=== PATIENT | male | born 1970 | race Caucasian/White ===

== ENCOUNTER 2018-10-29 00:36 | Emergency (ER) | payer SELFPAY ==
[~2018-10-29] VITALS: Ht 182.9 cm; Wt 93.3 kg
[~2018-10-29 00:36] MED LIST: AMOX1TAB64 PO; ASPI81TA45 PO; ATOR80TA PO; CARV3.1212 PO; LISI5TAB7 PO; LOVA10TA PO; NITR0.4T SL; PANT40TA3 PO; TICA90TA PO
[2018-10-29] MEDS ORDERED: DEXAMETHASONE 4 MG/ML, 1ML ONE (01:13)
[2018-10-29] MEDS ORDERED: SODIUM CHLORIDE FLUSH 10ML SYR IVF ONE (01:30)
[2018-10-29] MEDS ORDERED: DEXAMETHASONE 4 MG/ML, 1ML IVPush ONE (01:30)
[2018-10-29 01:43] LABS: BASOPHILS # (AUTO) 0.01 x10^3/uL (0-0.1); BASOPHILS % (AUTO) 0 % (0-1); EOSINOPHILS # (AUTO) 0.31 x10^3/uL (0-0.4); EOSINOPHILS % (AUTO) 2 % (1-7); LYMPHOCYTES # (AUTO) 2.26 x10^3/uL (1-3.4); LYMPHOCYTES % (AUTO) 17 % (22-44); MD NO; MEAN CORPUSCULAR HEMOGLOBIN 32.1 pg (27.5-34.5); MEAN CORPUSCULAR HGB CONC 34.4 g/dL (33.2-36.2); MEAN CORPUSCULAR VOLUME 93.4 fL (81-97); MEAN PLATELET VOLUME 7.6 fL (7.4-10.4); MONOCYTES # (AUTO) 1.05 x10^3/uL (0.2-0.8); MONOCYTES % (AUTO) 8 % (2-9); NEUTROPHILS # (AUTO) 9.41 x10^3/uL (1.8-6.8); NEUTROPHILS % (AUTO) 72 % (42-75); PLATELET COUNT 219 x10^3/uL (130-400); RED BLOOD COUNT 5.27 x10^6/uL (4.38-5.82); RED CELL DISTRIBUTION WIDTH 12.9 % (9.4-14.8)
--- NOTE | 2018-10-29 01:51 | NUR ---
IV STARTED ON PT. PT PLACED ON VITALS MONITORS, PT FAMILY AT BEDSIDE. PT AWAITNG CT.
[2018-10-29 01:55] LABS: ALBUMIN 4.1 g/dL (3.4-5.0); ANION GAP 10 mmol/L (5-15); CALCIUM 8.6 mg/dL (8.5-10.1); CHLORIDE 107 mmol/L (98-107); CREATININE 1.13 mg/dL (0.7-1.3)
[2018-10-29] MEDS ORDERED: OMNIPAQUE 350 MG/ML, 100ML BOTTLE ONE (02:14)
[2018-10-29] MEDS ORDERED: ONDANSETRON 2MG/ML, 2ML IVPush ONE (03:30)
[2018-10-29] MEDS ORDERED: LIDOCAINE-MPF 1%, 5ML INFIL ONE (03:30)
[2018-10-29] MEDS ORDERED: ONDANSETRON 2MG/ML, 2ML ONE (03:37)
[2018-10-29] MEDS ORDERED: LIDOCAINE-MPF 1%, 5ML ONE ×2 (03:37→04:09)
[2018-10-29] MEDS ORDERED: MORPHINE SULFATE 4 MG/ML, 1ML ONE ×2 (03:37→04:19)
[2018-10-29] MEDS: MORPHINE SULFATE 4 MG/ML, 1ML IVPush PRN ×2 (03:40→04:21)
[2018-10-29 04:56] VITALS: BP 111/63
== END 2018-10-29 04:59 | disposition home or self-care (01) ==
LOC: ED 01:18
DX: J36 Peritonsillar abscess (principal); I11.9 Hypertensive heart disease without heart failure; I25.2 Old myocardial infarction; F17.210 Nicotine dependence, cigarettes, uncomplicated
CPT/HCPCS: 36415; 42700; 70491; 80048; 82040; 85025; 96374; 96375; 96376; 99284; J1100; J2405; Q9967

== ENCOUNTER 2018-10-30 15:59 | Emergency (ER) | payer SELFPAY ==
[~2018-10-30] VITALS: Ht 182.9 cm; Wt 91.7 kg
[2018-10-30 16:41] LABS: BASOPHILS # (AUTO) 0.06 x10^3/uL (0-0.1); BASOPHILS % (AUTO) 0 % (0-1); EOSINOPHILS # (AUTO) 0.21 x10^3/uL (0-0.4); EOSINOPHILS % (AUTO) 2 % (1-7); LYMPHOCYTES # (AUTO) 3.07 x10^3/uL (1-3.4); LYMPHOCYTES % (AUTO) 22 % (22-44); MD NO; MEAN CORPUSCULAR HEMOGLOBIN 31.6 pg (27.5-34.5); MEAN CORPUSCULAR HGB CONC 33.9 g/dL (33.2-36.2); MEAN CORPUSCULAR VOLUME 93.2 fL (81-97); MEAN PLATELET VOLUME 7.6 fL (7.4-10.4); MONOCYTES # (AUTO) 0.99 x10^3/uL (0.2-0.8); MONOCYTES % (AUTO) 7 % (2-9); NEUTROPHILS # (AUTO) 9.86 x10^3/uL (1.8-6.8); NEUTROPHILS % (AUTO) 70 % (42-75); PLATELET COUNT 240 x10^3/uL (130-400); RED BLOOD COUNT 5.35 x10^6/uL (4.38-5.82)
--- NOTE | 2018-10-30 17:13 | NUR ---
DIRECTOR OF OFFICIATING: PT TO ROOM FROM [facility]
--- NOTE | 2018-10-30 17:49 | NUR ---
PT AMBULATORY TO ROOM 16 W/ C/O TONSILLAR ABSCESSED THAT WAS DRAINED 2 DAYS AGO. PT WAS SENT HOME W/ AUGMENTIN. PT STATES HE HAS BEEN TAKING AUGMENTIN RX. PT STATES PAIN AND SWELLING INCREASED EVEN W/ USE OF ANTX. PT RESTING ON GURNEY. NADN. VSS. MONITORS APPLIED. WARM BLANKET PROVIDED.
[2018-10-30 18:33] VITALS: BP 117/78
--- NOTE | 2018-10-30 18:33 | NUR ---
PT RESTING ON GURNEY. NADN. JOHNSON.
--- NOTE | 2018-10-30 19:02 | NUR ---
BEDSIDE REPORT GIVEN TO SVITLANA CHAVEZ RN.
--- NOTE | 2018-10-30 19:15 | NUR ---
REPORT RECEIVED FROM JOHANNA MIRELES. PT RESTING ON STRETCHER, NO DISTRESS NOTED. PT CONCERNED ABOUT WHEN ENT WILL ARRIVE, INFORMED WAITING FOR CALL BACK. ASKING ABOUT CT O TO ANOTHER HOSPITAL, INFORMED IT COULD BE REQUESTED BY HOSPITAL
--- NOTE | 2018-10-30 19:30 | NUR ---
WENT TO DISCHARGE PT, ALREADY GONE AND ROOM CLEANED, PT ELOPED
== END 2018-10-30 19:34 | disposition left against medical advice (07) ==
LOC: ED 19:28
DX: J36 Peritonsillar abscess (principal); H92.01 Otalgia, right ear; I11.9 Hypertensive heart disease without heart failure; I25.2 Old myocardial infarction
CPT/HCPCS: 36415; 85025; 99283